=== PATIENT | female | born 1945 | race Caucasian/White ===

== ENCOUNTER → 2016-04-03 | Outpatient (CLI) | payer OTHER ==
[~2016-04-03] VITALS: Ht 171.4 cm; Wt 81.4 kg
[~2016-04-03] MED LIST: ASCORBIC ACID500 M3 PO; ASPIR 8181 M1 PO; CENTRUM SILVER1 EAC3 PO; GLUCOSAMINE-CH1 EA38 PO; MAGNESIUM250 MG PO; NEXIUM40 MG PO; OMEPRAZOLE20 MG PO; PROPRANOLOL HCL20 MG PO; SIMVASTATIN20 MG PO; VESICARE5 MG PO; VITAMIN D31000 UNI2 PO; VITAMIN D35000 UNI1 PO; VITAMIN E1000 UNI1 PO
[2016-04-03 08:19] VITALS: BP 127/76
== END | disposition home or self-care (01) ==
LOC: IVINF 03-16 07:00
DX: M81.0 Age-related osteoporosis without current pathological fracture (principal); T50.995A Adverse effect of other drugs, medicaments and biological substances, initial encounter; Z88.0 Allergy status to penicillin; Z88.2 Allergy status to sulfonamides; Z88.8 Allergy status to other drugs, medicaments and biological substances
CPT/HCPCS: 96365; J3489